=== PATIENT | female | born 1980 | race Two or more races ===

== ENCOUNTER 2019-10-28 05:36 | Day surgery (SDC) | payer OTHER ==
[~2019-10-28 05:36] MED LIST: NABUMETONE750 MG PO
[2019-10-28] MEDS ORDERED: DUI500 PO (12:06)
[2019-10-28] MEDS ORDERED: ULTRACET PO (12:06)
== END 2019-10-28 17:00 | disposition home or self-care (01) ==
LOC: CIR.AMB 05:36 → EDSTATUS 10:00 → CIR.AMB 10:00
PROVIDERS: ATTEND Orthopaedic Surgery Sports Medicine
DX: M23.8X1 Other internal derangements of right knee (principal); Z20.828 Contact with and (suspected) exposure to other viral communicable diseases